=== PATIENT | female | born 1990 | race Caucasian/White ===

== ENCOUNTER 2022-10-05 10:34 | Outpatient (CLI) | payer BC, SELFPAY ==
--- NOTE | ~2022-10-05 | MR_ITS ---
EXAMINATION: MR abdomen wo/w con INDICATION: Indeterminate liver mass on CT TECHNIQUE: Coronal SSFSE ARC, WATER:coronal LAVA-FLEX, Coronal 2D FIESTA FatSat, Axial SSFSE BH ARC, Axial 3D DualEcho BH, Axial SSFSE-IR, Axial DWI b=500, Axial 2D FIESTA FatSat, pre and dynamic postco ntrast Axial LAVA ARC, postcontrast Coronal In and Opposed phase LAVA FLEX COMPARISON: CT, 08/29/2022 CONTRAST: Multihance, 20 cc FINDINGS: There is an approximately 6.4 x 4.5 cm mass in liver segment VII which is subtly T1 hypoint ense and T2 hyperintense with a central area which is T1 hypointense and T2 hyperintense. The mass de monstrates enhancement in the arterial phase infiltrates isointense on progressively delayed postcont rast phases. There is also progressive enhancement of the central scar. Findings are consistent with focal nodular hyperplasia. No additional liver mass is identified. IMPRESSION: 1. Focal nodular hyperplasia of the right hepatic lobe corresponding to the mass in question on CT. Reviewed, dictated and finalized at location B. IMPRESSION: 1. Focal nodular hyperplasia of the right hepatic lobe corresponding to the mas s in question on CT.
== END 2022-10-05 10:35 ==
LOC: MICIMG 10:37
PROVIDERS: PCP Nurse Practitioner Family; Visit Provider Nurse Practitioner Family
DX: K76.89 Other specified diseases of liver (principal)
CPT/HCPCS: 74183; A9577